=== PATIENT | female | born 1955 | race Caucasian/White ===

== ENCOUNTER 2021-02-14 13:24 | Outpatient (REF) | payer MEDICARE, BC, SELFPAY ==
--- NOTE | ~2021-02-14 | XR_ITS ---
EXAMINATION: XR ANKLE, LEFT CLINICAL INFORMATION: Left ankle pain. COMPARISON: None TECHNIQUE: AP, lateral, and mortise views of the left ankle. FINDINGS: There is a nondisplaced transverse fracture of the distal tip of the lateral malleolus. The medial malleolus is intact. The tibiotalar joint space is unremarkable. The tarsal bones are normally aligned. There is mild soft tissue swelling laterally. XR/XR ankle LT min 3V IMPRESSION: Acute, nondisplaced fracture of the distal tip of the lateral malleolus with mild adjacent soft tissue swelling.
== END 2021-02-14 13:25 | disposition home or self-care (01) ==
LOC: HO.HMGCX 13:24
PROVIDERS: PCP Family Medicine; Visit Provider Internal Medicine
DX: S93.402A Sprain of unspecified ligament of left ankle, initial encounter (principal)
CPT/HCPCS: 73610

== ENCOUNTER → 2021-02-16 14:05 | Outpatient (BNVA) | payer MEDICARE, BC, SELFPAY | PROVIDERS: PCP Family Medicine; Visit Provider Physician Assistant | DX: S82.402A Unspecified fracture of shaft of left fibula, initial encounter for closed fracture (principal); S93.402A Sprain of unspecified ligament of left ankle, initial encounter; W18.09XA Striking against other object with subsequent fall, initial encounter; Y93.K1 Activity, walking an animal; Y92.410 Unspecified street and highway as the place of occurrence of the external cause; Y99.8 Other external cause status | CPT/HCPCS: 99202 ==

== ENCOUNTER 2021-04-14 13:00 | Outpatient (RCR) | payer MEDICARE, BC, SELFPAY ==
--- NOTE | 2021-03-04 14:05 | MHC.PT.EP ---
[facility] [place] [facility] [place] [facility] [place] [facility] [address] Yasir Roy [address] [phone] F: [phone] F: [phone] F: [phone] F: [phone] Physical Therapy Plan of Care Date of Evaluation: Date of Surgery: Diagnosis: This is a 65 yo female presenting to skilled PT with a script for L ankle sprain. Assessment: This is a 65 yo female presenting to skilled PT with a script for L ankle sprain. Patient with fibula shaft fx that happened 02/14/2021. She was walking the dog and stepped in a crack and her foot rolled over. She is being seen by [facility]. Note states She states her pain is moderate and she has been doing okay, hasn't noticed much swelling. She will use a boot WBAT for the next 4 weeks. I recommend a course of PT to work on ROM and proprioceptive training. She should transition to a lace up ankle brace once she is weaned from the boot. She was educated on the length of recovery for an avulsion fracture. She should continue with Ibuprofen and icing . She will see me back if symptoms worsen, otherwise prn. Pain is located lateral malleoli, pain is achy unless it is bumped and then it is sharp. She is very active and likes to exercise (TRX, yoga, Pilates, walking). Assessment reveals pain that ranges up to a 3/10. She demos decreased ankle ROM, decreased ankle strength, impaired gait pattern ambulating currently in walking boot, impaired joint mobility with pain at distal fib with palpation, lateral ankle swelling, as well as gross functional decline with normal exercise routine, walking and stairs. She is a good candidate for skilled PT 2x/wk for 5 wks. 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 Manual therapy to restore motion and function. Therapeutic exercise to improve strength and flexibility. Neuromuscular re-education for posture and balance. Therapeutic activities to return to functional activities of daily living. Electronically signed by: Milli Dior PT Please sign and return to therapist. Thank you for your referral.
--- NOTE | 2021-04-16 10:14 | MHC.PT.DC ---
[facility] [place] [facility] [place] [facility] [place] [facility] [address] Yasir Roy [address] [phone] F: [phone] F: [phone] F: [phone] F: [phone] Physical Therapy Discharge Report Diagnosis: This is a 65 yo female presenting to skilled PT with a script for L ankle sprain. Date of Surgery: Date of Evaluation: 03/04/21 Date of Discharge: 04/16/21 Treatments to Date: 6 Cancellations to Date: 0 No Shows to Date: 0 Discharge Status: Achieved Goals Improved Function Independent with HEP Discharge Summary: Patient demos normal ROM and improved strength. She has returned to ambulating for exercise and returned to swimming/trx program. Reviewed HEP. Patient is compliant and ready for DC at this time. Educated on arch support as needed Electronically signed by: Milli Dior PT Please sign and return to therapist. Thank you for your referral.
== END 2021-04-16 10:15 | disposition home or self-care (01) ==
LOC: HO.PTCHIC 13:00
PROVIDERS: PCP Family Medicine; Visit Provider Physician Assistant
DX: S93.402D Sprain of unspecified ligament of left ankle, subsequent encounter (principal)
CPT/HCPCS: 97110; 97112; 97140; 97162

== ENCOUNTER 2024-12-03 10:18 | Day surgery (SDC) | payer MEDICARE, BC, SELFPAY ==
--- OUTSIDE RECORDS SUMMARY | 2024-11-05 15:00 | XMS_ITS | Patient Health Record ---
Author Organization [facility] Address [address] [place] [id number] Care Team Providers Care In Process Inspector Name Role Phone Richardson Borden M.D Primary Care Provider Ramo Pérez [phone] Allergies No Known Allergies Reason For Referral No Information Medications Medication SIG (Take, Route, Fr equency, Duration) Notes Start Date End Date Status Vitamin D 1000 UNIT 1 tablet Orally Once a day Active Vitamin C 500 MG as directed Orally Active Vitamin B12 Active Flaxseed Oil Active Probiotic Active Turmeric Active Coenzyme Q-10 100 MG 1 capsule with a me al Orally Once a day Active Red Yeast Rice 600 MG Orally Active Calcium 500 MG 1 tablet with meals Orally Twice a day Active Fish Oil 1000 MG 1 capsule Orally Once a day Active Problems Problem Type SNOMED Code ICD Code Onset Dates Problem Status W/U Status Risk Notes Problem Long-term current use of drug therapy (072678336) Encounter for long-term (current) use of other medications (V58.69) Active confirmed Problem Colon cancer screening (979462784) Colon cancer screening (V76.51) Active confirmed Problem History of adenomatous polyp of colon (631399389) History of adenomatous polyp of colon (V12.72) Active confirmed Problem Colon cancer screening (865125099) Colon cancer screening (Z12.11) Active confirmed Problem Preprocedural examination (837001646235125) Preprocedural examination (Z01.818) Active confirmed Problem History of adenomatous polyp of colon (654733725) History of adenomatous polyp of colon (Z86.0101) Active confirmed Vital Signs Blood pressure diastolic 77 mm Hg 09/11/2024 Height 64 in 09/11/2024 Blood pressure systolic 111 mm Hg 09/11/2024 Weight 130 lbs 09/11/2024 BMI 22.31 kg/m2 09/11/2024 Procedures Procedure Date Ordered Date Performed Result Body Sit e COLONOSCOPY 09/11/2024 N/A Encounters Encounter Location Date Provider Diagnosis [facility] [address] [place] [address] 09/11/2024 Ramo Stubbs Colon cancer screeni ng Z12.11 ; Preprocedural examination Z01.818 and History of adenomatous polyp of colon Z86.0101 Assessments Encounter Date Diagnosis (ICD Code) Assessment Notes Treatment Notes Treatment Clinical Notes Section Notes 09/11/2024 Colon cancer screening (ICD-10 - Z12.11) Overall, Sofia appears quite well. Given her age, excellent clinical appearance, and her last colonoscopy being over 10 years ago, I did recommend a follow-up colonoscopy for further screening purposes. We did review the rationale for this in regard to colon cancer prevention. Full consent has been obtained for this, including risks of bleeding and perforation. The procedure will be done with monitored anesthesia care. She was given the below instructions regarding adjustment of her supplements prior to the procedure. Sofia was comfortable with this plan. Thank you again for allowing me to participate in Sofia's care. I shall continue to keep you advised of her progress. 09/11/2024 Preprocedural examination (ICD-10 - Z01.818) Overall, Sofia appears quite well. Given her age, excellent clinical appearance, and her last colonoscopy being over 10 years ago, I did recommend a follow-up colonoscopy for further screening purposes. We did review the rationale for this in regard to colon cancer prevention. Full consent has been obtained for this, including risks of bleeding and perforation. The procedure will be done with monitored anesthesia care. She was given the below instructions regarding adjustment of her supplements prior to the procedure. Sofia was comfortable with this plan. Thank you again for allowing me to participate in Sofia's care. I shall continue to keep you advised of her progress. 09/11/2024 History of adenomatous polyp of colon (ICD-10 - Z86.0101) Overall, Sofia appears quite well. Given her age, excellent clinical appearance, and her last colonoscopy being over 10 years ago, I did recommend a follow-up colonoscopy for further screening purposes. We did review the rationale for this in regard to colon cancer prevention. Full consent has been obtained for this, including risks of bleeding and perforation. The procedure will be done with monitored anesthesia care. She was given the below instructions regarding adjustment of her supplements prior to the procedure. Sofia was comfortable with this plan. Thank you again for allowing me to participate in Sofia's care. I shall continue to keep you advised of her progress. Plan Of Treatment Pending Test Test Name Order Date COLONOSCOPY 09/11/2024 Future Test Test Name Order Date COLONOSCOPY 11/06/2013 Next Appt Details Provider Name:Ramo Stubbs , 12/03/2024 12:40:00 PM, [address] [place] [address], [id number], Insurance Providers Payer Name Payer Address Payer Phone Subscriber Number Group Number Insured Name Patient Relationship to Insured Coverage Start Date Coverage End Date MEDICARE OF [place] [address] [place] [address] [id number] ROBBIN SOFIA Self - patient is the insured 0 [facility] [address] [place], [place] [id number] ROBBIN SOFIA Self - patient is the insured Medical (General) History Medical History History ICD Code Colonoscopy 10-20-2007--1 sma ll tubular adenoma removed, mild sigmoid diverticulosis, internal hemorrhoids Denies PR,DM,CVA,Lung disease,renal dise ase Hypercholesterolemia Negative colonoscopy in 2014 Surgical History Surgery Date(Month/Year) Removal of fatty tumors on her finger an d her shoulder
[2024-11-29 14:51] VITALS: BMI 22.3
--- NOTE | 2024-11-30 09:14 | HO.ANESPROP2 ---
HPI - Anesthesia Eval Consult details Narrative: 68yo F for Colonoscopy PMFSH Active Problems Active Problems: All Active Problems Closed fibular fracture (Acute) Ankle sprain (Acute) Past Medical History Medical History Elevated cholesterol Surgical History Surgical History Hx of excision of mass H/O colonoscopy Social History Social History (Updated 11/29/24 @ 14:57 by Carlie Girard RN) Household Members: Spouse Are you a primary health care facilities inspector to a significant other at home: No Do you presently have visiting nurse or other home services: No Alcohol intake: never Patient Tobacco Use Status: Never used Tobacco Second Hand Smoke Exposure: No Use of substances other than those prescribed or required for medical reasons: No Have you been hit, kicked, punched, or otherwise hurt by someone within the past year? If so, by whom?: No Are you DNR?: No Advance Directives: No Advance Directives Information Provided: Yes Advance Directives on File: No Patient : No : No Poor oral hygiene: No Gender identity: Female Meds Allergies Allergy/AdvReac Type Severity Reaction Status Date / Time No Known Allergies Allergy Verified 02/16/21 14:14 Home Medications ?Medication ?Instructions ?Recorded ?Confirmed ?Last Taken ?Type Lactobacillus acidophilus and 1 cap PO DAILY 11/29/24 11/29/24 Unknown History rhamnosus 15 billion cell capsule (Probiotic) ascorbic acid (vitamin C) 500 mg 500 mg PO DAILY 11/29/24 11/29/24 Unknown History tablet (Vitamin C) calcium carbonate 500 mg PO BID 11/29/24 11/29/24 Unknown History cholecalciferol (vitamin D3) 25 25 mcg PO DAILY 11/29/24 11/29/24 Unknown History mcg (1,000 unit) capsule (Vitamin D3) coenzyme Q10 100 mg capsule (Co 100 mg PO DAILY 11/29/24 11/29/24 Unknown History Q-10) cyanocobalamin (vitamin B-12) 500 500 mcg PO DAILY 11/29/24 11/29/24 Unknown History mcg tablet (Vitamin B-12) omega 8-jzl-mnd-fish oil 1,000 mg 1 cap PO DAILY 11/29/24 11/29/24 Unknown History (120 mg-180 mg) capsule (Fish Oil) red yeast rice 600 mg capsule 600 mg PO DAILY 11/29/24 11/29/24 Unknown History Exam Height,Weight and Vital Signs: Height 5 ft 4 in Weight 58.967 kg Assessment and Plan Assessment Anesthesia Assessment: Chart Reviewed
[2024-12-03 10:39] VITALS: BP 130/66; PULSE 61; RESP 16; TEMP 36.6; O2SAT 99
[2024-12-03] MEDS: Lactated Ringers 1,000 ML 100 ML IVCONT (10:45)
[2024-12-03 12:44] VITALS: BP 114/64; PULSE 60; RESP 12; TEMP 36.1; O2SAT 97
--- NOTE | 2024-12-03 12:53 | P.BOP_ITS ---
Brief Operative Note Date of Service: 12/03/24 Pre-op diagnosis: Screening Post-op diagnosis: other (Polyp) Procedure: Colonoscopy to the cecum with cold snare polypectomy Surgeon: Ramo Stubbs MD Anesthesia: MAC Was an Public Transit Trolley Driver used for this Procedure?: No Estimated blood loss (mL): 2.0 Pathology: other (A. Polyp at 40cm) Condition: stable Disposition: PACU
[2024-12-03 13:00] VITALS: BP 125/69; PULSE 46; RESP 8; O2SAT 100
[2024-12-03 13:15] VITALS: BP 117/66; PULSE 55; RESP 16; TEMP 36.2; O2SAT 98
--- NOTE | 2024-12-03 22:54 | OP_ITS ---
DATE OF SERVICE: 12/03/2024 SURGEON: Ramo Stubbs MD INDICATIONS: The patient presents for followup of colorectal cancer screening. Full consent was obtained from her for that, including risks of bleeding and perforation. PREOPERATIVE DIAGNOSIS: POSTOPERATIVE DIAGNOSIS: PROCEDURE PERFORMED: Colonoscopy to cecum with cold snare polypectomy. ESTIMATED BLOOD LOSS: COMPLICATIONS: ANESTHESIA: Medications used, monitored anesthesia care. ASSISTANTS: SPECIMENS: PREOPERATIVE DIAGNOSES: Colorectal cancer screening and prior history of tubular adenoma. POSTOPERATIVE DIAGNOSES: Colorectal cancer screening and prior history of tubular adenoma, small colon polyp, diverticulosis, and internal hemorrhoids. DESCRIPTION OF PROCEDURE: The patient was placed in the left lateral decubitus position. The digital rectal exam revealed no abnormalities. The Olympus video pediatric colonoscope was entered into the rectum and advanced easily to the cecum. Once in the cecum, I identified normal-appearing cecal pouch with appendiceal orifice a normal-appearing ileocecal valve. The entire cecum and ileocecal valve appeared normal. There was transillumination of light deep in the right lower quadrant. The scope was slowly withdrawn assessing all mucosal surfaces carefully. Preparation was excellent. At 40 cm was a flat, approximately 5 mm polyp, which was removed by cold snare polypectomy and recovered by suction. The polypectomy site appeared clean, without any sign of residual polyp nor significant bleeding. I did not visualize any other polyps, colitis, nor angiodysplasia. There was a mild amount of sigmoid diverticulosis. Once in the rectum the scope was retroflexed visualizing internal hemorrhoids, but no other pathology. The rectal mucosa appeared normal. The scope was straightened and withdrawn from the patient. She tolerated the procedure well and was returned to recovery area in stable condition. IMPRESSION: 1. Small colon polyp. 2. Diverticulosis. 3. Internal hemorrhoids. PLAN: The results of the pathology will be checked. If this is only hyperplastic then I do not think she will be needing any further screening colonoscopies. If this is adenomatous, I would recommend a followup colonoscopy in 5 years. She will otherwise see me as needed. MD TORY Cleaning/ANDREINA / [phone]
== END 2024-12-03 13:59 | disposition home or self-care (01) ==
PROVIDERS: PCP Family Medicine; Visit Provider Internal Medicine
PROC: 0DJD8ZZ Inspection of Lower Intestinal Tract, Via Natural or Artificial Opening Endoscopic (ICD-10-PCS; CPT 45378; principal; 2024-12-03 11:40)
DX: Z12.11 Encounter for screening for malignant neoplasm of colon (principal); Z86.0101 Personal history of adenomatous and serrated colon polyps; D12.5 Benign neoplasm of sigmoid colon; K57.30 Diverticulosis of large intestine without perforation or abscess without bleeding; K64.8 Other hemorrhoids; E78.00 Pure hypercholesterolemia, unspecified; Z79.899 Other long term (current) drug therapy; Z98.890 Other specified postprocedural states
CPT/HCPCS: 45385; 88305; J2003; J2704